=== PATIENT | female | born 1985 | race Caucasian/White ===

== ENCOUNTER 2020-10-06 10:34 | Emergency (ER) | payer MEDICAID ==
[~2020-10-06] VITALS: Ht 152.4 cm; Wt 88.6 kg
[2020-10-06 10:40] VITALS: BP 130/64; Ht 152.4 cm; Wt 88.6 kg
[2020-10-06 11:13] LABS: ANION GAP 11.9 mmol/L (8-16); CALCIUM 9.3 mg/dL (8.5-10.1); CARBON DIOXIDE 26.3 mmol/L (21.0-32.0); POTASSIUM - SERUM 3.2 mmol/L (3.5-5.1)
[2020-10-06 11:19] LABS: ALBUMIN 4.1 g/dL (3.4-5.0); BILIRUBIN - TOTAL 0.94 mg/dL (0.2-1.3); PROTEIN - SERUM 8.2 g/dL (6.4-8.2)
[2020-10-06 11:37] LABS: BASOPHILS 0.1 % (0-2); EOSINOPHILS 0 % (0-7); HEMATOCRIT 33.9 % (36.0-48.0); HEMOGLOBIN 10.1 g/dL (12-16); IMMATURE GRANULOCYTES 0.3 % (0-5); LYMPHOCYTE ABS# 1.81 10x3/uL (1.18-3.74); LYMPHOCYTES 11.4 % (15-50); MCH 20.6 pg (26.0-34.0); MCHC 29.8 g/dL (31.0-37.0); MONOCYTES 8.6 % (2-11); NEUTROPHIL ABS# 12.68 10x3/uL (1.56-6.13); NEUTROPHILS 79.6 % (40-80); PLATELET COUNT 438 10x3/uL (130-400); RBC 4.91 10x6/uL (4.00-5.40); RDW 16.5 % (11.5-14.5); WBC 15.9 10x3/uL (4.8-10.8)
[2020-10-06 11:59] LABS: BACTERIA MODERATE HPF (NONE SEEN); BILIRUBIN NEGATIVE (NEGATIVE); KETONE SMALL mg/dL (NEGATIVE); NITRITE NEGATIVE (NEGATIVE); SQUAMOUS EPITHELIAL OCC HPF (0-4); UROBILINOGEN NORMAL mg/dL (< 2); WHITE CELLS - URINE >50 HPF (0-4)
[2020-10-06] MEDS ORDERED: OMNICEF300 MG PO (12:51)
[2020-10-06] MEDS ORDERED: HYDROCODON-ACE1 EAC7 PO (12:51)
== END 2020-10-06 13:12 | disposition home or self-care (01) ==
LOC: D.ER 10:34
PROVIDERS: Family Medicine
DX: N12 Tubulo-interstitial nephritis, not specified as acute or chronic (principal); M54.5 Low back pain; R30.0 Dysuria; R11.0 Nausea